=== PATIENT | female | born 1945 ===

== ENCOUNTER 2023-05-13 06:24 | Day surgery (SDC) | payer OTHER ==
[~2023-05-13] VITALS: Ht 162.6 cm; Wt 71.7 kg
[~2023-05-13 06:24] MED LIST: ATACAND32 MG; AVAPRO300 MG PO; CLONAZEPAM0.5 MG; HYDROCHLOROTHIA25 MG; NAMENDA10 MG; NEURONTIN800 MG; NEXIUM40 MG/PACK; NORVASC5 MG PO; SYNTHROID100 MCG
[2023-05-13] MEDS ORDERED: CEFAZOLIN SODIUM 1,000 MG VIAL ONE (09:18)
[2023-05-13] MEDS ORDERED: HEPARIN SODIUM,PORCINE 5,000 UNITS/ML VIAL ONE (09:36)
[2023-05-13] MEDS ORDERED: LIDOCAINE HCL 1% 200MG/20ML VIAL IJ ONE (09:36)
[2023-05-13] MEDS ORDERED: HEPARIN SODIUM,PORCINE 500 UNITS/5 ML VIAL IV ONE ×3 (09:36→10:15)
[2023-05-13] MEDS ORDERED: BUPIVACAINE HCL/PF 0.5% 5MG/ML VIAL IJ ONE (10:15)
[2023-05-13] MEDS ORDERED: CEFAZOLIN SODIUM 1,000 MG VIAL IV SCH (10:15)
[2023-05-13] MEDS ORDERED: LIDOCAINE HCL/PF 10 MG/ML AMPUL IJ ONE (10:15)
[2023-05-13] MEDS ORDERED: TRAM1TAB98 PO (10:35)
== END 2023-05-13 14:45 | disposition home or self-care (01) ==
LOC: CIR.AMB 06:24 → EDBD 09:15 → CIR.AMB 09:15
PROVIDERS: ATTEND Surgery
DX: C21.1 Malignant neoplasm of anal canal (principal); I10 Essential (primary) hypertension; Z20.822 Contact with and (suspected) exposure to COVID-19

== ENCOUNTER 2024-02-13 05:32 | Day surgery (SDC) | payer OTHER ==
[~2024-02-13 05:32] MED LIST changes: +TRAM1TAB98 PO
[2024-02-13] MEDS ORDERED: LIDOCAINE HCL 1%/EPINEPHRINE 20ML VIAL IJ ONE (07:45)
[2024-02-13] MEDS ORDERED: BUPIVACAINE HCL 30 ML VIAL IJ ONE (07:45)
[2024-02-13] MEDS ORDERED: CEFAZOLIN SODIUM 1,000 MG VIAL IV ONE (07:45)
[2024-02-13] MEDS ORDERED: TRAM1TAB98 PO (08:01)
== END 2024-02-13 10:35 | disposition home or self-care (01) ==
LOC: CIR.AMB 05:32
PROVIDERS: ATTEND Surgery
DX: T82.594A Other mechanical complication of infusion catheter, initial encounter (principal); C21.1 Malignant neoplasm of anal canal